=== PATIENT | female | born 1990 ===

== ENCOUNTER 2017-06-05 10:22 | Emergency (ER) | payer BC, MEDICAID ==
[2017-06-05 10:51] VITALS: BP 105/57; PULSE 81; RESP 17; TEMP 99.2; O2SAT 97
[2017-06-05 10:52] VITALS: BMI 40.6
[2017-06-05] MEDS ORDERED: Sodium Chloride 0.9% 1,000 ML IV STA (11:53)
--- NOTE | 2017-06-05 14:09 | ED PDOC ---
HPI: Abdomen Time Seen by Provider: 06/05/17 10:47 Chief Complaint (Nursing): GI Problem Chief Complaint (Provider): Diarrhea History Per: Patient History/Exam Limitations: no limitations Onset/Duration Of Symptoms: Days (x7) Current Symptoms Are (Timing): Still Present Additional Complaint(s): Bertha Garcia is a 26 year old female that presents to the ED with a chief complaint of non-bloody diarrhea that she has been experiencing for the past week. Patient reports that she has been having about 4 episodes per day, and states that she has abdominal cramping that only occurs during her episodes. She denies any fever, nausea, or vomiting. Against Medical Advice - AMA Patient Left Against Medical Advice: The patient declines admission to the hospital and wishes to leave the Emergency Department. This action is against my medical advice. This decision was made with informed refusal. The patient was told that admission to the hospital is necessary. Explanation of the reasons why were discussed. The risks of leaving were explained to the patient and include, but are not limited to, worsening of known or currently unknown conditions, permanent disability and from undiagnosed or untreated conditions. The patient has the capacity to make this informed decision and understands my explanation of the current medical problem and risks of leaving. The patient voluntarily accepts these risks and signed an AMA form documenting our conversation. The patient was given the opportunity to ask questions and reconsider. The patient was encouraged to return to the Emergency Department at any time for further care. Past Medical History Reviewed: Historical Data, Nursing Documentation, Vital Signs Vital Signs: Last Vital Signs Temp 99.2 F 06/05/17 10:50 Pulse 81 06/05/17 10:50 Resp 17 06/05/17 10:50 BP 105/57 L 06/05/17 10:50 Pulse Ox 97 06/05/17 10:50 - Family History Family History: States: Unknown Family Hx - Allergies Allergies/Adverse Reactions: Allergies Allergy/AdvReac Type Severity Reaction Status Date / Time No Known Allergies Allergy Verified 06/05/17 11:04 Review of Systems ROS Statement: Except As Marked, All Systems Reviewed And Found Negative Constitutional: Negative for: Fever Gastrointestinal: Positive for: Abdominal Pain (cramping), Diarrhea (non-bloody) . Negative for: Nausea, Vomiting Physical Exam - Reviewed Nursing Documentation Reviewed: Yes Vital Signs Reviewed: Yes - Physical Exam Appears: Positive for: Non-toxic, No Acute Distress Head Exam: Positive for: ATRAUMATIC, NORMOCEPHALIC Skin: Positive for: Normal Color, Warm Eye Exam: Positive for: EOMI, Normal appearance, PERRL Neck: Positive for: Normal, Supple Cardiovascular/Chest: Positive for: Regular Rate, Rhythm. Negative for: Murmur Respiratory: Positive for: Normal Breath Sounds. Negative for: Wheezing Gastrointestinal/Abdominal: Positive for: Normal Exam, Soft. Negative for: Tenderness Back: Positive for: Normal Inspection. Negative for: L CVA Tenderness, R CVA Tenderness Extremity: Positive for: Normal ROM. Negative for: Deformity, Swelling Neurologic/Psych: Positive for: Alert, Oriented. Negative for: Motor/Sensory Deficits - ECG O2 Sat by Pulse Oximetry: 97 (RA) Pulse Ox Interpretation: Normal Medical Decision Making Medical Decision Making: Impression: Diarrhea Plan: * CMP * CBC * NaCl 1000 mLs at 1000 mLs/hr * Reevaluation 12:35 Patient left AMA. Scribe Attestation: Documented by Brittany Eisenberg, acting as a scribe for Valentina Novak MD. Provider Scribe Attestation: All medical record entries made by the Scribe were at my direction and personally dictated by me. I have reviewed the chart and agree that the record accurately reflects my personal performance of the history, physical exam, medical decision making, and the department course for this patient. I have also personally directed, reviewed, and agree with the discharge instructions and disposition. Disposition - Clinical Impression Clinical Impression: Diarrhea - Disposition Disposition: Against Medical Advice Disposition Time: 12:35 Condition: FAIR Forms: [employer] ([place])
== END 2017-06-05 12:50 | disposition left against medical advice (07) ==
LOC: H.ER 10:22
DX: R19.7 Diarrhea, unspecified (principal)